=== PATIENT | male | born 1970 | race Hispanic/Latino ===

== ENCOUNTER 2019-02-12 13:08 | Outpatient (CLI) | payer OTHER ==
--- NOTE | 2019-02-12 14:52 | ULT ---
SCROTAL SONOGRAM WITH DUPLEX EVALUATION: HISTORY: Left testicular pain. FINDINGS: The right testicle measures up to 4.5 cm. Intratesticular cyst is 0.4 cm in greatest diameter. No jose g id masses. Good color and spectral Doppler flow. The left testicle measures up to 4.1 cm with good color and spectral Doppler flow. Intratesticular cy st measures up to 1.1 x 0.8 cm in greatest diameter. No solid masses. Along the inferior aspect of the left side of the scrotum, in the region of pain, slightly dilated ve nous structures demonstrate engorgement upon Valsalva maneuver. IMPRESSION: 1. Small left varicocele. 2. Bilateral intratesticular cysts. No solid mass is visible. No evidence of torsion. POS: [facility]
== END 2019-02-12 13:09 | disposition home or self-care (01) ==
LOC: BICULT 13:08
PROVIDERS: ATTEND Urology
DX: N50.812 Left testicular pain (principal); I86.1 Scrotal varices; N44.2 Benign cyst of testis
CPT/HCPCS: 76870; 93976